=== PATIENT | male | born 1955 | race Caucasian/White ===

== ENCOUNTER 2017-04-18 14:30 | Inpatient (IN) | payer SELFPAY ==
[~2017-04-18] VITALS: Ht 177.8 cm; Wt 111.1 kg
--- NOTE | ~2017-04-18 | HP ---
PATIENT'S NAME: [facility] AGE: 62 Y [address] ROOM: [address] [address] LOCATION: [facility] ADMIT DATE: 04/18/2017 History & Physical DISCHARGE DATE: FAMILY PHYSICIAN: PHYSICIAN, UNKNOWN ATTENDING PHYSICIAN: Aria WILL DATE OF SERVICE: CHIEF COMPLAINT: Severe sepsis. HISTORY OF PRESENT ILLNESS: The patient is a 62-year-old gentleman with past medical history of ischemic cardiomyopathy status post ICD, mitral valve regurgitation status post repair, coronary artery disease status post CABG and PCI, COPD, and diabetes mellitus, type 2 who presents here from [facility] with severe sepsis secondary to pneumonia. The patient reports that for the past week or so he has been having worsening of productive cough from his baseline COPD. He also reports a blood tinged cough. He was seen at [facility] and has had a CT with contrast done, however, does not know what the result is. Today, he went to see his primary care physician for the results and was noted to have a fever of 101.8 and low blood pressure. The patient was transferred to emergency department. At the emergency department, he was noted to have a labile blood pressure and fever with elevated white blood cell count of 35.8. The patient had a chest x-ray that shows right lower lung field pneumonia and was transferred to our hospital for further care. The patient reports that for the past 4 or 5 days, he has been feeling under the weather. He reports of fever, chills, and low blood pressure. He also reports of dizziness. He also reports that his productive cough has been worsening and reports blood-tinged cough. The patient also reports of pleuritic chest pain on the right side when he coughs and shortness of breath. The patient denies substernal chest pain, orthopnea, leg swelling, abdominal pain, nausea, diarrhea, and recent weight loss. Of note, the reports that the patient has had close to 3 to 4 episodes of loss of consciousness. The patient reports that he has had 3 or 4 "faintings" where he regained his consciousness pretty quickly. He denies any tongue biting, urinary incontinence, or seizure-like activity. PAST MEDICAL HISTORY: 1. Type 2 diabetes. 2. COPD. 3. Ischemic cardiomyopathy. 4. CAD. [facility]GE[facility] 62 Y [address] ROOM: [address] [address] LOCATION: [facility] ADMIT DATE: 04/18/2017 History & Physical DISCHARGE DATE: FAMILY PHYSICIAN: PHYSICIAN, UNKNOWN ATTENDING PHYSICIAN: Aria WILL 5. History of ventricular fibrillation arrest. PAST SURGICAL HISTORY: 1. Mitral valve replacement. 2. CABG and PCI. FAMILY HISTORY: Mother has lung cancer. Father has history of hypertension and CAD. SOCIAL HISTORY: He is retired, used to work at [employer]. He has 45 years of tobacco use. He seldomly drinks alcohol. ALLERGIES: PENICILLIN. MEDICATIONS: 1. Aspirin 81 mg daily. 2. Zyrtec 10 mg daily. 3. Spironolactone 25 mg daily. 4. Albuterol as needed. 5. Ativan 1 mg 3 times a day as needed. 6. Plavix 1 mg daily. 7. Crestor. No dose on the Crestor. 8. Percocet. 9. Bumetanide 2 tablets a day. 10. Metolazone 1 tablet. 11. Metformin 1 tablet a day. 12. Citalopram, no dose noted. 13. Lopressor 1/2 tablet twice a day, but there is no dose. Awaiting for further medication reconciliation. REVIEW OF SYSTEMS: All systems have been reviewed and were negative except for what I mentioned in the HPI. PHYSICAL EXAMINATION: VITAL SIGNS: Temperature 97.9, blood pressure 100/54, heart rate of 85, respiratory rate 27, and saturating 91% on 2 L. GENERAL APPEARANCE: The patient is alert and awake, in mild respiratory distress. HEAD: Normocephalic and atraumatic. PATIENT'S NAME: KELLIE [facility] AGE: 62 Y [address] ROOM: [address] [address] LOCATION: [facility] ADMIT DATE: 04/18/2017 History & Physical DISCHARGE DATE: FAMILY PHYSICIAN: PHYSICIAN, UNKNOWN ATTENDING PHYSICIAN: Aria WILL EYES: Extraocular muscles intact. NOSE: No nasal discharge. MOUTH: No mouth discharge. EARS: No ear discharge. NECK: No JVD. CHEST: Bilateral mild expiratory wheezing. Decreased breath sounds in right lower lung huertas. HEART: Regular rate and rhythm. No murmurs, rubs, or gallops heard. ABDOMEN: Soft, nontender, and nondistended. Bowel sounds present. EXTREMITIES: No edema. SKIN: Warm to touch. WELL HEAD PUMPER: The patient is alert and oriented x3. Motor and sensory grossly intact. MUSCULOSKELETAL: Range of motion intact. No obvious joint effusion noted. LABORATORY DATA: Labs drawn from the outside hospital shows a white blood cell count of 35.8, hemoglobin of 11.9, platelets of 370,000, and lactate of 3.1. Sodium of 129, potassium of 4.2, CO2 of 31, BUN of 28, and creatinine of 1.22. ABG done here shows a pH of 7.48, pCO2 of 45, pO2 of 78, bicarbonate of 33.5, and lactate of 2. ASSESSMENT AND PLAN: 1. Severe sepsis. Etiology most likely secondary to healthcare-associated pneumonia. The patient was recently admitted at [facility] in March for congestive heart failure. The patient has right-sided pneumonia on chest x-ray, elevated lactate, leukocytosis, and a labile blood pressure with initial blood pressure and the systolic in the 80s. The patient has received 1.3 L of fluid at [facility]. We will continue another 2 L. We will start the patient on 0.9% normal saline at 100 mL an hour. The patient already received Levaquin and vancomycin at [facility]. We will add meropenem. We will acquire sputum culture. We will await blood culture from the outside hospital. We will also get a CT chest without contrast. We will also try to acquire the CTA of the chest that was done as outpatient. Also acquire a strep and Legionella urine antigen. 2. Healthcare-acquired pneumonia. See problem #1. 3. Hemoptysis. The patient has few episodes of productive cough with blood- tinged cough. Etiology most likely secondary to pneumonia. We will evaluate the patient with CT chest without contrast. We will also try to acquire the CTA chest with contrast that was done at the outside hospital. We will treat underlying etiology. 4. History of syncope. The patient has had recent history of syncope. He reports he had syncope 3 to 4 times in the past month or so. The patient has history of ventricular fibrillation arrest secondary to coronary artery disease in September 2016. We will acquire ICD interrogation and PATIENT'S NAME: CHIARA HOPKINS [facility] AGE: 62 Y [address] ROOM: [address] [address] LOCATION: [facility] ADMIT DATE: 04/18/2017 History & Physical DISCHARGE DATE: FAMILY PHYSICIAN: PHYSICIAN, UNKNOWN ATTENDING PHYSICIAN: Aria WILL also acquire echocardiogram. We will observe the patient clinically. 5. Ischemic cardiomyopathy with ejection fraction of 25% status post ICD. The patient appears well compensated. The patient currently in severe sepsis and we will continue IV fluids. We will follow the patient clinically. 6. Chronic obstructive pulmonary disease. We will continue bronchodilator. 7. Diabetes mellitus, type 2. We will hold the metformin and we will start sliding scale. 8. Tobacco abuse. Greater than 3 minutes, but less than 10 minutes were spent on tobacco cessation. We will offer nicotine patch. 9. Coronary artery disease status post coronary artery bypass grafting and percutaneous coronary intervention in 2016. We will continue aspirin and Plavix. 10. Hypertension. We will hold all antihypertensive medications as patient is presenting with labile blood pressure. Greater than 30 minutes of critical care were spent. We will admit the patient in the ICU for severe sepsis. The patient is currently improving, blood pressure improving with IV fluids. We will continue IV fluid and antibiotics. Code status was discussed with family and patient. The patient is a full code on admission. MD JANE COLE/chacho /[id number] D: [id number] T: [id number] HISTORY & PHYSICAL
--- NOTE | ~2017-04-18 | DS ---
PATIENT'S NAME: CHIARA HOPKINS [facility] AGE: 62 Y [address] ROOM: [address] [address] [facility] ADMIT DATE: 04/18/2017 Discharge Summary DISCHARGE DATE: FAMILY PHYSICIAN: Physician, Unknown ATTENDING PHYSICIAN: Aria Camarillo PRINCIPAL DIAGNOSES: 1. Severe sepsis with shock secondary to pneumonia. 2. Gram-negative bacterial pneumonia. 3. Acute respiratory failure with hypoxia. 4. Decompensated congestive heart failure. 5. Acute kidney injury. HOSPITAL COURSE: Please refer to the admitting H and P for detailed history of initial presentation. This is a 62-year-old male with a history of heavy smoking who presented with worsening shortness of breath, cough, and was found to have pneumonia and severe sepsis with shock, and was subsequently admitted to the ICU. The patient was started on broad-spectrum antibiotics and given IV fluid resuscitation and showed significant improvement in his initial hospital stay. In the days following the patient continued to do well, antibiotics were narrowed down, oxygen requirement subsided, and was subsequently transferred out of ICU. Sputum cultures did show gram-negative organisms, however, speciation was not determined. At this point the patient is off supplemental oxygen requirement and ambulating in hallways very well. I will discharge the patient on p.o. Levaquin to finish 7 more day course of antibiotics and he will follow up with PCP within a week. I will resume all his cardiac medications including his Bumex as well as Zaroxolyn. The patient was a bit volume overloaded on second day of hospital stay from fluid resuscitation that he got to treat sepsis and was given a dose of IV Lasix which seems to have resolved that issue and patient currently is euvolemic. PHYSICAL EXAMINATION: VITAL SIGNS: Today, the patient is awake, alert, and oriented x3 in no acute distress. CHEST: Clear to auscultation bilaterally. HEART: S1, S2 regular rate and rhythm. ABDOMEN: Soft, nontender, nondistended. EXTREMITIES: Trace pitting edema. DISPOSITION: Home. FOLLOWUP: PCP in 1 week. MEDICATIONS: Per TERESA. Greater than 30 minutes were spent in discharge planning and facilitation. PATIENT'S NAME: CHIARA HOPKINS [facility] AGE: 62 Y [address] ROOM: [address] [address] LOCATION: [facility] ADMIT DATE: 04/18/2017 Discharge Summary DISCHARGE DATE: FAMILY PHYSICIAN: PhysicianModesta ATTENDING PHYSICIAN: Aria Camarillo EMIOT MD DARION LEBLANC/chacho /[id number] d: 04/22/17 0209 t: 05/10/17 1521, DISCHARGE SUMMARY
[~2017-04-18 14:30] MED LIST: AMBIEN5 MG PO; ASPIRIN LO-DOSE81 MG PO; BUMETANIDE2 MG PO; CELEXA20 MG PO; COUMADIN **IA10 MG PO; COUMADIN **IA7.5 MG PO; CRESTOR20 MG PO; EFFIENT10 MG PO; K-TAB ER20 MEQ PO; LANOXIN (DIGI125 MCG PO; LASIX20 MG PO; LOPRESSOR25 MG PO; PERCOCET 5-3251 EACH PO
[2017-04-18 16:00] LABS: BICARBONATE 33.5 mmol/L (18.0-23.0); PCO2 45 mmHg (35-45); PO2 78 mmHg (80-90)
[2017-04-18] MEDS ORDERED: GLUCOPHAGE500 MG PO (17:11)
[2017-04-18] MEDS ORDERED: ALDACTONE25 MG PO (17:12)
[2017-04-18] MEDS ORDERED: ZAROXOLYN2.5 MG PO (17:12)
[2017-04-18] MEDS ORDERED: PROAIR HFA8.5 GM INH (17:13)
[2017-04-18 17:15] LABS: HEMATOCRIT 32.9 % (37.0-53.0); HEMOGLOBIN 10.3 g/dL (11.0-16.0); MCH 22.5 pg (27.0-34.0); MCHC 31.3 gm/dL (32.0-36.5); MCV 71.8 fl (83.0-98.0); MPV 8.7 fl (9.4-12.4); PLATELET COUNT 355 K/uL (150-450); RDW-CV 21.2 % (11.9-14.6)
[2017-04-18 17:17] LABS: RBC 4.58 M/uL (3.50-5.50); WBC 52.2 K/uL (4.0-11.0)
[2017-04-18 17:30] LABS: ALBUMIN 2.7 gm/dL (3.5-5.0); CREATININE 1.7 mg/dL (0.6-1.3); POTASSIUM 3.6 mMol/L (3.7-5.1); TOTAL BILIRUBIN 1.2 mg/dL (0.0-1.5)
[2017-04-18 17:33] LABS: ANION GAP 11.6 (10.0-19.0)
[2017-04-18 18:16] LABS: INR - (THERAPEUTIC) 1.27 (0.92-1.07); PROTIME 13.4 SECONDS (9.8-11.4); PTT 31 SECONDS (25-32)
--- NOTE | 2017-04-18 18:51 | NUR ---
PATIENT CAME FROM [facility] VIA AMBULANCE. HAS HX OF CHRONIC COUGH BUT NOTICED THAT IT WAS WORSE ON TUESDAY. TRIED TO HOLD OUT TIL TUESDAY SO HE COULD GO TO THE CLINIC WHERE HE WAS INSTRUCTED TO GO TO ER AFTER LAB WORK. BROUGHT HERE WITH DIAGNOSIS OF SEPSIS WITH RLL PNEUMONIA. PT IS AAOX3. PERRLA. HAS CHRONIC NUMBNESS/TINGLING TO R) PINKY. AICD TO R) CHEST. [place] TO COME INTERROGATE. LUNG SOUNDS CLEAR AND DIMINISHED. DIMINIHSED IN RLL. RED THICK SPUTUM CULTURE COLLECT AND SENT. ACTIVE BS. BM LAST 04/18. BLOOD BLISTER TO R) TOE. DRY FEET. NO C/O PAIN. LAWSON INSERT FOR I&O. NO PROBLEMS. IV RUNNING.
[2017-04-18 19:02] LABS: BILIRUBIN URINE NEGATIVE (NEGATIVE); BLOOD URINE NEGATIVE /UL (NEGATIVE); COLOR URINE YELLOW (YELLOW); GLUCOSE URINE NEGATIVE (NEGATIVE); KETONE URINE NEGATIVE (NEGATIVE); LEUKOCYTES URINE 25 /UL (NEGATIVE); NITRITE URINE NEGATIVE (NEGATIVE); PROTEIN URINE 30 mg/dL (NEGATIVE); TURBIDITY URINE CLEAR (CLEAR); UROBILINOGEN URINE NORMAL (NORMAL)
[2017-04-18 19:05] LABS: LYMPHOCYTE # 4.7 K/uL (0.8-4.0); LYMPHOCYTE % 9 %; MONOCYTE # 4.7 K/uL (0.0-1.0)
[2017-04-18 19:06] LABS: ABSOLUTE NEUTROPHIL CT (ANC) 42.8 K/uL (1.4-9.0); BANDED NEUTROPHILS % 23 %; SEGMENTED NEUTROPHIL # 30.8 K/uL (1.4-9.0); SEGMENTED NEUTROPHIL % 59 %
[2017-04-18 19:30] LABS: AMORPHOUS URINE 3+ (NEGATIVE)
[2017-04-18 19:31] LABS: EPITHELIAL URINE 0-2 #/HPF (NEGATIVE); RBC URINE 0-2 #/HPF (NEGATIVE)
[2017-04-18 19:33] LABS: WBC URINE 0-2 #/HPF (NEGATIVE)
[2017-04-18 20:21] LABS: BACTERIA URINE NEGATIVE (NEGATIVE)
[2017-04-19 04:05] LABS: HEMOGLOBIN 9.8 g/dL (11.0-16.0); MCH 22.3 pg (27.0-34.0); MCHC 30.6 gm/dL (32.0-36.5); MCV 72.9 fl (83.0-98.0); MPV 8.9 fl (9.4-12.4); PLATELET COUNT 319 K/uL (150-450); RBC 4.39 M/uL (3.50-5.50); RDW-CV 21.2 % (11.9-14.6)
[2017-04-19 04:07] LABS: WBC 41.7 K/uL (4.0-11.0)
[2017-04-19 04:26] LABS: ALBUMIN 2.5 gm/dL (3.5-5.0); ANION GAP 9.6 (10.0-19.0); CALCIUM 8.3 mg/dL (8.5-10.5); CREATININE 1.3 mg/dL (0.6-1.3); MAGNESIUM 2.4 mg/dL (1.8-2.6); POTASSIUM 3.6 mMol/L (3.7-5.1); TOTAL BILIRUBIN 0.7 mg/dL (0.0-1.5); TOTAL PROTEIN 6.7 g/dL (6.0-8.4)
[2017-04-19 04:54] LABS: BANDED NEUTROPHIL # 2.5 K/uL (0.0-0.1); BANDED NEUTROPHILS % 6 %; LYMPHOCYTE # 2.9 K/uL (0.8-4.0); LYMPHOCYTE % 7 %; MONOCYTE # 0.8 K/uL (0.0-1.0); SEGMENTED NEUTROPHIL # 35.5 K/uL (1.4-9.0); SEGMENTED NEUTROPHIL % 85 %
--- NOTE | 2017-04-19 05:52 | NUR ---
Significant Event: Patient A/O x3. Pupils 3mm equal, brisk. Patient paced, with HRs 70s-80s. Max temp 99.1. Hypotensive. Patient lung sounds slightly course, dim on RLL, strong non productive cough. Scant bloody sputum. Bowel sounds active, diabetic diet. Kee adequate UOP. [facility] [employer] came to interrogate AICD. Replace 1 gram mg and 40meq KCL per protocol. CT of chest. Follow up: Continue
--- NOTE | 2017-04-19 09:46 | NUR ---
0940 PATIENT UP AND OUT OF BED WITH ASSISTANCE TO TAKE SHOWER.
--- NOTE | 2017-04-19 13:14 | NUR ---
Introduced self and role of care management to patient. Patient lives in [place], [place] with his . He is self pay. He says he applied for [place] Medicaid but was denied. He says his tried to get him on an "[employer]" insurance plan but he was also denied. He has a financial assistance form from admissions and encouraged him to complete it and mail it back. He says he will. He plans home when ready for discharge. He has O2 at home but usually only wears it at night. Does have O2 bottle for transport and will have his bring it with her. He hopes to go home today. Says if he has to stay it will only be for a day or two. Will follow.
--- NOTE | 2017-04-19 14:33 | NUR ---
1155 PATIENT UP AND WALKED AROUND UNIT WITH O2 TANK. HAD TO SIT DOWN ONCE AND CATCH HIS BREATH.
--- NOTE | 2017-04-19 18:00 | NUR ---
PATIENT HAS BEEN AAOX3. HE MOVES ALL EXTREMITIES AND FOLLOWS COMMANDS. HE HAS WALKED THE LOBATO WITH ASSISTANCE. PATIENT HAS BEEN ON 2 L TILL LATER THIS AFTERNOON WHEN NAPPING-UP TO 3L. DESATS WHEN TALKING TOO MUCH. NO BLOOD PRESSURE ISSUES. ANTIBIOTICS HAVE BEEN RUNNING THOUGH THE PIV IN RIGHT HAND TODAY. PATIENT WALKED WITH ASSITANCE TO SHOWER. HE HAS BEEN ON A DIABETIC DIET ALL DAY AND 100% OF HIS MEAL. NO NEED TO COVER ANY OF THE 3 ACCHECKS. ADEQUATE URINE OUTPUT-YELLOW AND CLEAR.
[2017-04-20 04:57] LABS: BASOPHIL # 0.1 K/uL (0.0-0.2); BASOPHIL % 0.3 %; EOSINOPHIL # 0.1 K/uL (0.0-0.5); EOSINOPHIL % 0.6 %; HEMATOCRIT 29.7 % (37.0-53.0); HEMOGLOBIN 9.1 g/dL (11.0-16.0); IMMATURE GRANULOCYTE # 0.2 K/uL (0.0-0.3); IMMATURE GRANULOCYTE % 0.8 %; LYMPHOCYTE # 3.1 K/uL (0.8-4.0); LYMPHOCYTE % 14.4 %; MCH 22.6 pg (27.0-34.0); MCHC 30.6 gm/dL (32.0-36.5); MCV 73.9 fl (83.0-98.0); MONOCYTE # 1.2 K/uL (0.0-1.0); MONOCYTE % 5.6 %; MPV 8.7 fl (9.4-12.4); NEUTROPHIL % 78.3 %; NRBC % 0 /100WBC (0-0.00); PLATELET COUNT 281 K/uL (150-450); RBC 4.02 M/uL (3.50-5.50); RDW-CV 21.1 % (11.9-14.6)
[2017-04-20 05:00] LABS: WBC 21.7 K/uL (4.0-11.0)
--- NOTE | 2017-04-20 05:07 | NUR ---
Significant Event: A/0X3. SBA UP TO BR. WALKED HALLS X1 THIS EVENING. TURNS SELF. AFEBRILE. VSS ON 3L. TYLENOL GIVEN X1 FOR A DULL HEADACHE. PATIENT WAS ABLE TO FIND SOME RELIEF. OFFERED PATIENT A WARM BLANKET FOR CHRONIC BACK PAIN BUT PATIENT REFUSED. IV TO R) WRIST SL. CONTINUE WITH IV ANTIBIOTICS. LAWSON PRESENT WITH 1000 MLS OUT. SMALL SEMI FORMED BM THIS SHIFT. Follow up: CONTINUE WITH PLAN OF CARE. LABS THIS AM
[2017-04-20 05:11] LABS: ALBUMIN 2.4 gm/dL (3.5-5.0); ANION GAP 9.9 (10.0-19.0); BLOOD UREA NITROGEN 21 mg/dL (6-24); CALCIUM 8.4 mg/dL (8.5-10.5); CHLORIDE 101 mMol/L (96-110); CO2 28 mMol/L (22-32); CREATININE 0.9 mg/dL (0.6-1.3); ESTIMATED GFR (MDRD EQUATION) > 60; MAGNESIUM 2.4 mg/dL (1.8-2.6); POTASSIUM 3.9 mMol/L (3.7-5.1); SODIUM 135 mMol/L (135-145)
--- NOTE | 2017-04-20 15:38 | NUR ---
Significant Event:VSS.1L PER NC. C/O INCREASE SOB THIS SHIFT.LASIX 20MG IV GIVEN, AND REESTARTED ON PO BUMEX FROM HOME.ORDER TO REMOVE LAWSON, AND WILL DC LATER THIS SHIFT DUE TO DIURETICS GIVEN.C/O BACK PAIN. TYLENOL GIVEN X2 THIS SHIFT WITH RELIEF.AMBULATED IN HALLS WITH OT.STAND BY ASSIST+WALKER. Follow up:WILL CONTINUE TO MONITOR PER PLAN OF CARE.
--- NOTE | 2017-04-21 04:09 | NUR ---
Significant Event: Patient is A/Ox3. VSS on 2-4L NC. Patient does desat with sleep, but will not allow his head to be elevated. Lactic acid level last night was 1.3 at 2200. Patient is up standby assist and is somewhat short of breath with activity, but states that he is much better than previous days. 3515ml output from glez this shift. Patient did receive lasix and bumex during the day yeterday. Tessalon Perles and tylenol given x1 each for cough and back pain respectively. No bowel movement this shift. Follow up: Continue IV antibiotics.
[2017-04-21] MEDS ORDERED: PLAVIX75 MG PO (15:26)
[2017-04-21] MEDS ORDERED: DELTASONE20 MG PO (15:31)
== END 2017-04-21 17:55 | disposition disaster alternative care site (69) | DRG 871 ==
LOC: GICU 15:23 → GPCU 15:23 → GICU 04-19 13:40 → GPCU 04-19 18:20
PROVIDERS: Internal Medicine; ADMIT Internal Medicine
DX: A41.9 Sepsis, unspecified organism (principal); J15.6 Pneumonia due to other Gram-negative bacteria; J96.01 Acute respiratory failure with hypoxia; R65.21 Severe sepsis with septic shock; I50.23 Acute on chronic systolic (congestive) heart failure; I11.0 Hypertensive heart disease with heart failure; N17.9 Acute kidney failure, unspecified; J44.0 Chronic obstructive pulmonary disease with (acute) lower respiratory infection; I25.10 Atherosclerotic heart disease of native coronary artery without angina pectoris; I25.5 Ischemic cardiomyopathy; E11.9 Type 2 diabetes mellitus without complications; F17.200 Nicotine dependence, unspecified, uncomplicated; Z88.0 Allergy status to penicillin; Z79.82 Long term (current) use of aspirin; Z79.84 Long term (current) use of oral hypoglycemic drugs; Z95.810 Presence of automatic (implantable) cardiac defibrillator
CPT/HCPCS: C9113; G0009; J1650; J1940; J1956; J2185; J2920; J3370; J3475; J3480; J7030; J7040; J7050